=== PATIENT | male | born 1955 | race Caucasian/White ===

== ENCOUNTER 2017-06-21 04:38 | Emergency (ER) | payer BC, OTHER ==
[~2017-06-21] VITALS: Ht 172.7 cm; Wt 96.5 kg
[2017-06-21 04:55] VITALS: Ht 172.7 cm; Wt 96.5 kg
[2017-06-21 05:54] LABS: BASOPHIL # 0.1 10^3/ul (0.0-0.1); BASOPHILS % 0.5 % (0.0-2.0); EOSINOPHILS # 0.1 10^3/ul (0.0-0.5); EOSINOPHILS % 0.4 % (0.0-7.0); HEMATOCRIT 40.8 % (42.0-52.0); HEMOGLOBIN 13.9 g/dl (14.0-18.0); LYMPHOCYTES # 1.3 10^3/ul (0.8-2.9); LYMPHOCYTES % 7.8 % (15.0-51.0); MEAN CORPUSCULAR HEMOGLOBIN 30.2 pg (29.0-33.0); MEAN CORPUSCULAR HGB CONC 34.1 g/dl (32.0-37.0); MEAN CORPUSCULAR VOLUME 88.7 fl (82.0-101.0); MEAN PLATELET VOLUME 12.2 fl (7.4-10.4); MONOCYTE # 0.7 10^3/ul (0.3-0.9); MONOCYTES % 3.9 % (0.0-11.0); NEUTROPHIL # 14.5 10^3/ul (1.6-7.5); NEUTROPHILS % 86.3 % (39.0-77.0); PLATELET COUNT 147 10^3/UL (140-415); RED CELL DISTRIBUTION WIDTH 13.8 % (11.5-14.5); WHITE BLOOD COUNT 16.8 10^3/ul (4.8-10.8)
[2017-06-21 06:20] LABS: ALBUMIN 4.4 g/dl (3.3-4.9); ALBUMIN/GLOBULIN RATIO 1.22; BILIRUBIN,INDIRECT 0.6 mg/dl (0-1.1); BILIRUBIN,TOTAL 0.6 mg/dl (0.2-1.3); CALCIUM 9.6 mg/dl (8.4-10.2); CREATININE 0.83 mg/dl (0.61-1.24); POTASSIUM 3.6 mmol/L (3.5-5.1)
[2017-06-21] MEDS ORDERED: SOD CHLORIDE 0.9% 1,000 ML IV STA (06:44)
--- NOTE | 2017-06-21 06:53 | ERA ---
ER Documentation Chief Complaint Date/Time DATE: 06/21/17 TIME: 06:48 Chief Complaint blood in urine since 0100. also c/o penile pain HPI This is a very pleasant 61-year-old Kyrgyz-speaking male with a known history of insulin-dependent diabetes mellitus high cholesterol and BPH that presents to the emergency department complaining of 2 days of frequency urgency and dysuria. Roughly 6 hours prior to arrival the patient developed hematuria. His fiance gave him extra strength Tylenol at 7 PM yesterday evening and at 1 AM, which was the onset of the hematuria, 6 hours prior to arrival. Patient never had any similar symptoms in the past. He does complain of a burning sensation in his penis when he urinates. He has had no recent travel or hospitalizations. He is not currently on antibiotics. He denies any abdominal pain. He has no shortness of breath at rest or exertion. He has no chest pain or pressure that radiates to the neck arm back or jaw. ROS All systems reviewed and are negative except as per history of present illness. Allergies Allergies: Coded Allergies: No Known Drug Allergies (Verified Allergy, Unknown, 06/21/17) PMhx/Soc History of Surgery: Yes (L eye sx, 4 stents) Hx Cardiac Disorders: Yes (high cholesterol, [place]) Hx Miscellaneous Medical Probl: Yes (BPH, DM) Hx Alcohol Use: Yes (rarely) Hx Substance Use: No Hx Tobacco Use: Yes Smoking Status: Current every day smoker Physical Exam Vitals Vital Signs Date Time Temp Pulse Resp B/P Pulse Ox O2 Delivery O2 Flow Rate FiO2 06/21/17 05:36 93 18 127/74 98 Room Air 06/21/17 04:55 99.7 93 20 131/66 97 Physical Exam Constitutional:Well-developed. Well-nourished. HEENT:Normocephalic. Atraumatic.Pupils were equal round reactive to light. Moist mucous membranes.No tonsillar exudates. Neck: No nuchal rigidity. No lymphadenopathy. No posterior cervical spine tenderness or step-offs. Respiratory: Not using accessory muscles of respiration.Lungs were clear to auscultation bilaterally. No rhonchi. No rales. No wheezing. Cardiovascular: Regular rate regular rhythm.No murmurs. No rubs were appreciated.S1, S2 normal. Distal pulses are palpable 2+ bilaterally. GI: Abdomen was soft. Nontender. Non Distended. No pulsatile abdominal masses or bruits. No rebound. No guarding. Bowel sounds were present and normal. Muscle skeletal: Full range of motion of both the upper and lower extremities bilaterally.Normal muscle tone.No assymetrical calf tenderness or swelling. Skin: No petechia, no purpura. No lesions on the palms or the soles of the feet. No maculopapular rash. NEURO: Patient was alert, awake, orientated x3.No facial droop. Gait observed and normal with no ataxia.Speech had regular rate and rhythm. No focal neurological deficits. Result Diagram: 06/21/17 0530 06/21/17 0530 Results 24 hrs Laboratory Tests Test 06/21/17 05:30 White Blood Count 16.810^3/ul Red Blood Count 4.6010^6/ul Hemoglobin 13.9g/dl Hematocrit 40.8% Mean Corpuscular Volume 88.7fl Mean Corpuscular Hemoglobin 30.2pg Mean Corpuscular Hemoglobin Concent 34.1g/dl Red Cell Distribution Width 13.8% Platelet Count 29986^3/UL Mean Platelet Volume 12.2fl Neutrophils % 86.3% Lymphocytes % 7.8% Monocytes % 3.9% Eosinophils % 0.4% Basophils % 0.5% Nucleated Red Blood Cells % 0.0/100WBC Neutrophils # 14.510^3/ul Lymphocytes # 1.310^3/ul Monocytes # 0.710^3/ul Eosinophils # 0.110^3/ul Basophils # 0.110^3/ul Nucleated Red Blood Cells # 0.010^3/ul Sodium Level 143mmol/L Potassium Level 3.6mmol/L Chloride Level 99mmol/L Carbon Dioxide Level 25mmol/L Anion Gap 23 Blood Urea Nitrogen 12mg/dl Creatinine 0.83mg/dl Glucose Level 202mg/dl Calcium Level 9.6mg/dl Total Bilirubin 0.6mg/dl Direct Bilirubin 0.00mg/dl Indirect Bilirubin 0.6mg/dl Aspartate Amino Transf (AST/SGOT) 20IU/L Alanine Aminotransferase (ALT/SGPT) 29IU/L Alkaline Phosphatase 87IU/L Total Protein 8.0g/dl Albumin 4.4g/dl Globulin 3.60g/dl Albumin/Globulin Ratio 1.22 Lipase 74U/L Current Medications Medications (Trade) Dose Ordered Sig/Haresh Route PRN Reason Start Time Stop Time Status Last Admin Dose Admin Sodium Chloride 1,000 ml @ 1,000 mls/hr Q1H STAT IV 06/21/17 06:44 06/21/17 07:43 UNV Cefazolin Sodium (Ancef 1 Gm/50 ml (Pmx)) 50 ml @ 100 mls/hr ONCE IVPB 06/21/17 07:00 06/21/17 07:29 UNV Ibuprofen (Motrin) 800 mg ONCE ONCE PO 06/21/17 07:00 06/21/17 07:01 UNV Procedures/MDM This patient presented to the emergency department frequency urgency and dysuria. The patient was nontoxic in appearance but did have leukocytosis. The patient had IV access established by nursing staff was placed in a clinical research monitor. The patient's physical exam findings were suggestive of a urinary tract infection. The patient was given Motrin for analgesic control in the emergency department liter bolus of normal saline. The patient's urinalysis had pyuria with leukocytosis, urine culture was obtained, and the patient received 1 g of Ancef intravenously. The patient stated he felt comfortable being discharged home his pain and improved and he was sent home with oral antibiotics. I also explained to the patient the necessity of following up with his primary care physician as well as urologist as his PSA was significantly elevated and indicated could not rule out neoplasm at this time. The patient was discharged home in fair condition. They were instructed to return to the emergency department at any time if there was any worsening of their condition. The patient stated they would follow up with their PCP in the next 24-48 hours to initiate a suitable medication regimen under the care of their PCP as well as to allow their PCP to monitor any drug reactions. The patient was discharged home with prescriptions after they gave informed consent to the new medication. They were also fully informed by myself on the adverse effects and adverse drug interactions in order to provide adequate safeguards to prevent possible adverse reactions to medications. Departure Diagnosis: Primary Impression: Hematuria Additional Impression: Urinary tract infection Qualified Code: N30.01 - Acute cystitis with hematuria Condition: Fair SAMANTHAORAA Jun 21, 2017 06:53
[2017-06-21] MEDS ORDERED: IBUPROFEN 800 MG TAB PO ONE (07:00)
[2017-06-21] MEDS ORDERED: CEFAZOLIN 1 GM/50 ML (PMX) 50 ML IVPB SCH (07:00)
[2017-06-21 07:30] LABS: ADD UMIC YES; UR ASCORBIC ACID NEGATIVE (NEGATIVE); UR BACTERIA FEW /HPF (NONE SEEN); UR BILIRUBIN (Dip) NEGATIVE (NEGATIVE); UR BLOOD (Dip) 2+ mg/dL (NEGATIVE); UR CLARITY CLEAR (CLEAR); UR COLOR STRAW (YELLOW); UR GLUCOSE (Dip) NEGATIVE (NEGATIVE); UR KETONES (Dip) NEGATIVE (NEGATIVE); UR LEUKOCYTE ESTERASE (Dip) 3+ Leu/ul (NEGATIVE); UR NITRITE (Dip) NEGATIVE (NEGATIVE); UR RBC 0 /HPF (0-5); UR SPECIFIC GRAVITY (Dip) 1.003 (1.003-1.030); UR TOTAL PROTEIN (Dip) NEGATIVE (NEGATIVE); UR UROBILINOGEN (Dip) NEGATIVE (NEGATIVE)
--- NOTE | 2017-06-21 08:13 | RADRPT ---
PROCEDURE: CT abdomen and pelvis without IV contrast. CLINICAL INDICATION: Abdominal and left flank pain TECHNIQUE: CT scan of the abdomen and pelvis without contrast was performed on the [employer] volumetric [address] scanner. The patient was scanned without intravenous contrast. Coronal and sagittal refo rmatted images were obtained from the axial source images. The CTDI vol is 19.16 mGy and the DLP is 1252.74 mGy-cm. COMPARISON: None. FINDINGS: CT abdomen: There is bibasilar compressive atelectasis. The remaining lung bases are clear. The heart size is n ot enlarged and is without pericardial thickening or effusion. The liver is normal in size and density and is without focal mass or intrahepatic biliary dilatation . The spleen is normal in size and homogeneous in density. The stomach is grossly unremarkable. T he pancreas as visualized is normal. The gallbladder and biliary tree are unremarkable and there is no evidence for common bile duct dilatation. The adrenal glands are symmetric and normal. The kid neys are symmetrically unremarkable as well. Nonspecific bilateral perinephric soft tissue stranding is seen. No renal calculus or obstructive uropathy or mass lesion is seen. The aorta is of normal in caliber. There is no retroperitoneal lymphadenopathy. The chen hepatis region is clear. The large bowel is stool-filled. The small and large bowel and mesentery, as visua lized, are otherwise unremarkable. The normal appendix is identified. CT pelvis: The prostate is significantly enlarged. The pelvic sidewalls and inguinal regions are clear. No pe lvic mass, lymphadenopathy, or free fluid is seen. No acute inflammation is seen. The urinary blad catherine wall is thickened. Degenerative spondylosis of the lumbar spine is seen. A sclerotic foci in the right iliac bone is se en measuring 7 mm in size and may represent a benign bone island. No osteolytic lesion is detected. IMPRESSION: 1. No acute pathology in the abdomen and pelvis. 2. Bladder wall thickening which may be secondary to bladder outlet obstruction given the significa nt enlarged prostate. The possibility of cystitis or under distension should also be considered. C orrelation with urinalysis may be of value as clinically warranted. In addition, recommend PSA faith elation. 3. Stool filled large bowel. 4. 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 Correlation with renal function tests may be of value. RPTAT: HPNM Jameel Rosas, Physician Date Time Electronically viewed and signed by Jameel Rosas, Physician on 06/21/2017 08:13 /
[2017-06-21] MEDS ORDERED: IBUP800T25 PO (08:22)
[2017-06-21] MEDS ORDERED: CEPH-443 PO (08:22)
[2017-06-21 08:47] VITALS: BP 116/64; PULSE 90; RESP 18; TEMP 100.6
== END 2017-06-21 08:57 | disposition home or self-care (01) ==
LOC: E/R 04:38
DX: N30.01 Acute cystitis with hematuria (principal); F17.210 Nicotine dependence, cigarettes, uncomplicated; E11.9 Type 2 diabetes mellitus without complications
CPT/HCPCS: 36415; 74176; 80053; 81001; 83690; 84153; 84154; 85025; 87086; 96374; J0690; J7030; Z7502; Z7610

== ENCOUNTER 2017-06-27 12:16 | Inpatient (IN) | END 2017-07-03 18:25 | disposition home or self-care (01) | DRG 872 | DX: A41.9 Sepsis, unspecified organism (principal); E11.65 Type 2 diabetes mellitus with hyperglycemia; I10 Essential (primary) hypertension; N12 Tubulo-interstitial nephritis, not specified as acute or chronic; N45.3 Epididymo-orchitis; I25.2 Old myocardial infarction; E78.00 Pure hypercholesterolemia, unspecified; B96.20 Unspecified Escherichia coli [E. coli] as the cause of diseases classified elsewhere; E66.9 Obesity, unspecified; Z68.32 Body mass index [BMI] 32.0-32.9, adult; N40.1 Benign prostatic hyperplasia with lower urinary tract symptoms; R33.8 Other retention of urine; Z95.5 Presence of coronary angioplasty implant and graft; Z87.891 Personal history of nicotine dependence ==

== ENCOUNTER 2017-12-02 20:09 | Emergency (ER) | END 2017-12-03 04:04 | disposition home or self-care (01) ==

== ENCOUNTER 2019-05-08 17:59 | Inpatient (IN) | payer OTHER, BC ==
[~2019-05-08] VITALS: Ht 172.7 cm; Wt 90.8 kg
[~2019-05-08 17:59] MED LIST: ASPI-817 PO; ATOR-2 PO; BENA10TA4 PO; CIPR500T4 PO; FENO145T37 PO; FINA5TAB4 PO; HYDR-4011 PO; IBUP-1542 PO; MTF1000T PO; NOVO7030 SC; SS SC; TAMS-14 PO; TRAM50TA PO
[2019-05-08] MEDS ORDERED: SODIUM CHLORIDE 0.9% 1L BAG IV* STA (18:42)
--- NOTE | 2019-05-08 18:42 | ERD ---
ER Documentation Chief Complaint Chief Complaint fever/generalize body weakness/nausea x 1 day. also c/o frequent urination HPI 63-year-old man with a history of BPH and prior UTIs presents with tactile fever, chills, generalized weakness, and dysuria beginning yesterday. Patient also complains of increased urinary frequency, no penile discharge, no complaints of scrotal or testicular pain, no chest pain or shortness of breath, no URI symptoms, no cough, no abdominal pain. ROS All systems reviewed and are negative except as per history of present illness. Medications Home Meds Active Scripts Ibuprofen* (Motrin*) 600 Mg Tab, 600 MG PO Q6, #20 TAB Prov:BRANDEE TORRES MD 12/03/17 Ciprofloxacin Hcl* (Ciprofloxacin Hcl*) 500 Mg Tablet, 500 MG PO BID for 10 Days, TAB Prov:BRANDEE TORRES MD 12/03/17 Hydrocodone/Acetaminophen (Bloomer 5-325 Tablet) 1 Each Tablet, 1 EACH PO Q4 for PAIN, #30 TAB Prov:BUCK LE 07/03/17 Tamsulosin Hcl* (Flomax*) 0.4 Mg Cap.er.24h, 0.4 MG PO HS for 30 Days, CAP Prov:BUCK EL 07/03/17 Reported Medications Insulin Human Regular (Novolin-R U-100) 100 Unit/Ml Soln, 12 UNIT SC SLIDING SCALE AC, EA 12/03/17 Insulin Isophan/Regular (Humulin 70/30) 100 Units/Ml Susp, 40 UNIT SC AC BREAKFAST DINNER, EA 12/03/17 Tramadol Hcl* (Ultram*) 50 Mg Tablet, 50 MG PO QHS PRN for PAIN, TAB 12/03/17 Aspirin* (Aspirin* EC) 81 Mg Tablet.dr, 81 MG PO DAILY, TAB 12/03/17 Benazepril Hcl* (Benazepril Hcl*) 10 Mg Tablet, 10 MG PO DAILY, #30 TAB 12/03/17 Hydrocodone/Acetaminophen (Bloomer 5-325 Tablet) 1 Each Tablet, 1 EACH PO, TAB 12/03/17 Metformin* (Glucophage*) 1,000 Mg Tablet, 1000 MG PO WITH BREAKFAST DINNE, #30 TAB 12/03/17 Atorvastatin* (Atorvastatin*) 80 Mg Tablet, 80 MG PO QHS, #30 TAB 06/28/17 Fenofibrate Nanocrystallized* (Fenofibrate*) 145 Mg Tablet, 145 MG PO DAILY, TAB 06/28/17 Finasteride* (Finasteride*) 5 Mg Tablet, 5 MG PO DAILY, TAB 06/28/17 Allergies Allergies: Coded Allergies: No Known Drug Allergies (Verified Allergy, Unknown, 06/21/17) PMhx/Soc Dyslipidemia, BPH, CAD, CHF, hypertension History of Surgery: Yes (Back surgery, Heart surgery ) Anesthesia Reaction: No Hx Neurological Disorder: No Hx Respiratory Disorders: No Hx Cardiac Disorders: Yes (CHF) Hx Psychiatric Problems: No Hx Miscellaneous Medical Probl: No Hx Alcohol Use: Yes (weekly) Hx Substance Use: No Hx Tobacco Use: Yes (4-5 cigarette per day) Smoking Status: Current every day smoker Physical Exam Vitals Vital Signs Date Temp Pulse Resp B/P (MAP) Pulse Ox O2 O2 Flow FiO2 Time Delivery Rate 05/08/19 98.6 81 23 94/52 (66) 100 Room Air 20:30 05/08/19 93 18 100/56 100 Room Air 20:01 (71) 05/08/19 101.4 115 16 93/52 (66) 96 18:24 Physical Exam Const: Mild discomfort, febrile Resp: Clear to auscultation bilaterally Cardio: Tachycardic and regular, no murmurs Abd: Soft, non tender, non distended. Patient had a soft belly without guarding rigidity or rebound. Skin: No petechiae or rashes Back: No midline or flank tenderness Ext: No cyanosis, or edema, calves symmetrical no hematomas or contusions, no lacerations Neur: Awake and alert x3, no focal deficits or facial asymmetry, pupils equal round reactive to light Psych: Normal Mood and Affect Result Diagram: 05/08/19 1836 05/08/19 1836 Results 24 hrs Laboratory Tests Test 05/08/19 18:23 05/08/19 18:35 05/08/19 18:36 05/08/19 20:33 Bedside Glucose 79 mg/dL POC Venous Lactate 2.0 mmol/L White Blood Count 8.1 10^3/ul Red Blood Count 4.84 10^6/ul Hemoglobin 14.3 g/dl Hematocrit 42.7 % Mean Corpuscular 88.2 fl Volume Mean Corpuscular 29.5 pg Hemoglobin Mean Corpuscular 33.5 g/dl Hemoglobin Concent Red Cell 13.7 % Distribution Width Platelet Count 170 10^3/UL Mean Platelet 11.8 fl Volume Immature 0.200 % Granulocytes % Neutrophils % % Segmented 60 % Neutrophils % (Manual) Band Neutrophils % 27 % (Manual) Lymphocytes % % Lymphocytes % 11 % (Manual) Monocytes % % Eosinophils % % Basophils % % Basophils % 2 % (Manual) Nucleated Red 0.0 /100WBC Blood Cells % Immature 0.020 10^3/ul Granulocytes # Neutrophils # 10^3/ul Neutrophils # 5.0 10^3/ul (Manual) Band Neutrophils # 2.1 10^3/ul Lymphocytes 0.8 10^3/ul (Manual) Lymphocytes # 10^3/ul Monocytes # 10^3/ul Eosinophils # 10^3/ul Basophils # 10^3/ul Basophils # 0.1 10^3/ul (Manual) Nucleated Red 10^3/ul Blood Cells # Platelet Estimate NORMAL Giant Platelets 1 % Polychromasia 1+ Poikilocytosis 1+ Anisocytosis 1+ Microcytosis 1+ Prothrombin Time 12.9 Sec Prothrombin Time 1.0 Ratio INR International 0.96 Normalized Ratio Activated 23.[address] Time Urine Color RED Urine Clarity CLOUDY Urine pH 5.0 Urine Specific 1.020 [place] Urine Ketones NEGATIVE mg/dL Urine Nitrite POSITIVE mg/dL Urine Bilirubin NEGATIVE mg/dL Urine Urobilinogen 2+ mg/dL Urine Leukocyte NEGATIVE Dilan/ul Esterase Urine Microscopic > 182 /HPF RBC Urine Microscopic 17 /HPF WBC Urine Squamous FEW /HPF Epithelial Cells Urine Bacteria FEW /HPF Urine Mucus MANY /HPF Urine Hemoglobin 3+ mg/dL Urine Glucose NEGATIVE mg/dL Urine Total 2+ mg/dl Protein Sodium Level 139 mmol/L Potassium Level 3.2 mmol/L Chloride Level 103 mmol/L Carbon Dioxide 24 mmol/L Level Anion Gap 12 Blood Urea 15 mg/dl Nitrogen Creatinine 0.82 mg/dl Est Glomerular > 60 mL/min Filtrat Rate mL/min Glucose Level 66 mg/dl Calcium Level 8.8 mg/dl Total Bilirubin 1.2 mg/dl Direct Bilirubin 0.00 mg/dl Indirect Bilirubin 1.2 mg/dl Aspartate Amino 26 IU/L Transf (AST/SGOT) Alanine 32 IU/L Aminotransferase ( ALT/SGPT) Alkaline 92 IU/L Phosphatase Troponin I < 0.012 ng/ml Total Protein 7.6 g/dl Albumin 4.1 g/dl Globulin 3.50 g/dl Albumin/Globulin 1.17 Ratio Lipase 133 U/L Lactic Acid Level 1.8 mmol/L Current Medications Medications Dose Sig/Haresh Start Time Status Last (Trade) Ordered Route PRN Stop Time Admin Dose Reason Admin Sodium 2,000 ml BOLUS OVER 2 05/08/19 DC 05/08/19 Chloride HOURS STAT 18:42 18:52 (NS) IV* 05/08/19 18:50 Ibuprofen 600 mg ONCE ONCE 05/08/19 DC 05/08/19 (Motrin) PO 19:00 18:54 05/08/19 19:01 Ceftriaxone 50 ml @ ONCE ONCE 05/08/19 DC 05/08/19 Sodium 100 mls/hr IVPB 19:00 18:54 05/08/19 19:29 Sodium 1,000 ml @ Q1H STAT 05/08/19 DC 05/08/19 Chloride 1,000 mls/hr IV 20:23 20:34 05/08/19 21:22 IV Flush 3 ml PER 05/08/19 (NS 3 ml) PROTOCOL IV 21:00 650 mg Q6H PRN 05/08/19 Acetaminophen PO .PAIN 1-3 21:00 (Tylenol OR TEMP Tab) 1 tab Q6H PRN 05/08/19 Acetaminophen PO .PAIN 4-6 21:00 / Hydrocodone Bitart (Bloomer (5/325)) Morphine 2 mg Q4H PRN 05/08/19 Sulfate IV .PAIN 21:00 (morphine) 7-10 Docusate 100 mg Q12H PRN 05/08/19 Sodium PO 21:00 (Colace) .CONSTIPATION Bisacodyl 5 mg DAILY PRN 05/08/19 (Dulcolax) PO 21:00 .CONSTIPATION 200 ml @ Q12 IVPB 05/08/19 05/08/19 Ciprofloxacin 200 mls/hr 21:00 21:33 / Dextrose Discontinue ONCE ONCE 05/08/19 DC Miscellaneous current oral XX 21:00 sulfonylur... 05/08/19 21:15 Information (* Miscellaneous Pharmacy Order) Diagnostic 1 ea 02 XX 05/09/19 Test (Pha) 02:00 (Accu-Chek) ONCE ONCE 05/08/19 DC Miscellaneous HYPOGLYCEMIA XX 21:00 PROTOCOL 05/08/19 21:15 Information w... (* Miscellaneous Pharmacy Order) Insulin NOVOLOG WITH MEALS 05/08/19 Aspart *MILD* BEDTIME SC 21:00 (Novolog ALGORITHM Insulin Pen) Discontinue ONCE ONCE 05/08/19 DC Miscellaneous all previ... XX 21:00 05/08/19 21:15 Information (* Miscellaneous Pharmacy Order) Aspirin 81 mg DAILY PO 05/09/19 (Halfprin) 09:00 80 mg QHS PO 05/08/19 05/08/19 Atorvastatin 21:00 21:30 Calcium (Lipitor) Fenofibrate 145 mg DAILY PO 05/09/19 (Tricor) 09:00 Finasteride 5 mg DAILY PO 05/09/19 (Proscar) 09:00 Tamsulosin 0.4 mg HS PO 05/08/19 05/08/19 HCl 21:00 21:30 (Flomax) 40 unit AC BREAKFAST 05/09/19 UNV Miscellaneous DINNER SC 07:00 Information Sodium 1,000 ml @ Q1H ONCE 05/08/19 05/08/19 Chloride 1,000 mls/hr IV 21:40 21:53 05/08/19 22:39 Procedures/MDM IV line was established patient was placed on youth nutritional monitor rhythm strip revealed a narrow complex tachycardia at 110 bpm with upright P and T waves. Patient was febrile, blood and urine cultures have been ordered results are pending I will follow-up. Chest X-ray 1V Interpreted by me: Soft Tissue: No acute abnormalities Bones: No acute abnormalities Mediastinum/Cardiac Silhouette/Lungs: No acute abnormalities I administered ibuprofen 600 mg p.o. for fever, ceftriaxone 1 g IV for suspected UTI, and 4 L normal saline IV. EKG performed, read by me revealed a sinus tachycardia 107 bpm, normal axis, narrow QRS complex, no concerning ST elevations or depressions noted Initial lactic acid 2.0, repeat was 1.8. CBC was within normal limits, electrolytes within normal limits, liver function tests normal, troponin negative, urinalysis positive for infection Patient's infectious symptoms have not stabilized and the patient is at risk of rapid decompensation. The patient will be admitted for careful hydration, antibiotic therapy, and infectious source control. SEVERE SEPSIS CRITERIA: Infectious source: UTI End organ damage indicated by: SEPSIS MANAGEMENT Time of recognition of sepsis: Upon arrival. Time of recognition of severe sepsis: No severe sepsis at this time. Time of recognition of septic shock: No septic shock at this time. 3 HOUR BUNDLE Blood cultures x 2 before broad-spectrum antibiotics: Yes 30 ml/kg NS bolus completed Initial lactate 2.0 Repeat lactate 1.8 SEPTIC SHOCK ASSESSMENT: No lactic acid > 4.0 No persistent hypotension (SBP < 90 or 40 mmHg drop, MAP < 65) despite 30 mL/kg IV fluid bolus VOLUME REASSESSMENT FOR SEPTIC SHOCK: Reevaluation Time: 2130 Temp 98.6, pulse 88 bpm, blood pressure 100/60, oxygen saturation 100% Heart regular rate & rhythm Lungs no crackles Skin warm & dry Cap Refill less than 2 seconds Peripheral pulses radially present PERSISTENT HYPOTENSION TREATMENT: Comfort care no Central line not Required Vasopressor started not required I considered further perfusion assessment with CVP measurement, SCVO2, bedside ultrasound volume assessment, passive leg raise, trial of further fluid bolus. And proceeded with 30 ml/kg fluid bolus of NSS, broad spectrum antibiotics, and admission. CRITICAL CARE: Critical care time 35 minutes, this was time separate from other billable procedures. Emergent fluid management while maintaining close respiratory support. Provision of immediate and broad-spectrum antibiotic therapy. Simultaneous assessment for possible sources in order to direct targeted therapy. Consideration for invasive and chemical support to prevent cardiopulmonary collapse. Critical care time is independent of procedures performed. Accepting Care Team: Current data and ongoing care discussed. Time: Time of admission Primary Provider: Hospitalist Consulting: Infectious disease and Outstanding Data: none Departure Diagnosis: Primary Impression: Acute UTI Additional Impression: Sepsis Sepsis type: sepsis due to unspecified organism Qualified Codes: A41.9 - Sepsis, unspecified organism Condition: RIP Bourne MD May 08, 2019 18:42
[2019-05-08] MEDS ORDERED: CEFTRIAXONE 1 GM/50 ML (PMX) 50 ML IVPB ONE (19:00)
[2019-05-08] MEDS ORDERED: IBUPROFEN 600 MG TAB PO ONE (19:00)
[2019-05-08] MEDS ORDERED: SOD CHLORIDE 0.9% 1,000 ML IV STA (20:23)
--- NOTE | 2019-05-08 20:52 | HP ---
Date/Time of Note Date/Time of Note DATE: 05/08/19 TIME: 20:52 Assessment/Plan VTE Prophylaxis SCD applied (from Nsg): Yes Pharmacological prophylaxis: NA/contraindicated Pharm contraindication: low risk/ambulating Lines/Catheters IV Catheter Type (from Nrsg): Saline Lock Urinary Cath still in place: No Assessment/Plan Hospital Course This is a 63-year-old male being admitted to telemetry floor for: #1 sepsis: Secondary to urinary tract infection. Patient had previous urine cultures positive for E. coli. Cipro iv. Await urine culture results. Will trend lactic acid levels. #2 recurrent urinary tract infection: Cipro iv, await urine culture. Also check PSA level. Consider urology consultation if indicated. #2 normocytic anemia: Denies any overt bleeding. Monitor closely. Follow-up as an outpatient #3 diabetes mellitus: We will check a hemoglobin A1c level, patient is on NPH 40 units twice daily. We will put him on 20 units twice daily of Lantus as we do not carry NPH in the hospital. Insulin sliding scale. #4 hyperlipidemia: Check lipid panel, continue statin #5 hypertension: Patient's blood pressures are borderline at the current time given his sepsis. We will hold off on initiating home blood pressure meds at the current time #6 coronary artery disease: Continue patient's home medications however we will hold blood pressure meds #7 BPH: Continue home meds check a PSA level #8 history of epididymoorchitis: The patient denies any testicular pain, he does report dysuria on urination which she reports was similar to what he had last time. Will order a stat ultrasound of the scrotum. #9 DVT GI prophylaxis: SCDs, no GI prophylaxis indicated Further treatment strategy will be implemented as per the clinical course. Result Diagram: 05/08/19 1836 05/08/19 1836 Results 24hrs Laboratory Tests Test 05/08/19 18:23 05/08/19 18:35 05/08/19 18:36 Bedside Glucose 79 POC Venous Lactate 2.0 White Blood Count 8.1 # Red Blood Count 4.84 Hemoglobin 14.3 Hematocrit 42.7 Mean Corpuscular Volume 88.2 Mean Corpuscular Hemoglobin 29.5 Mean Corpuscular Hemoglobin Concent 33.5 Red Cell Distribution Width 13.7 Platelet Count 170 Mean Platelet Volume 11.8 H Immature Granulocytes % 0.200 Neutrophils % Segmented Neutrophils % (Manual) 60 Band Neutrophils % (Manual) 27 H Lymphocytes % Lymphocytes % (Manual) 11 L Monocytes % Eosinophils % Basophils % Basophils % (Manual) 2 Nucleated Red Blood Cells % 0.0 Immature Granulocytes # 0.020 Neutrophils # Neutrophils # (Manual) 5.0 Band Neutrophils # 2.1 H Lymphocytes (Manual) 0.8 Lymphocytes # Monocytes # Eosinophils # Basophils # Basophils # (Manual) 0.1 H Nucleated Red Blood Cells # Platelet Estimate NORMAL Giant Platelets 1 H Polychromasia 1+ Poikilocytosis 1+ Anisocytosis 1+ Microcytosis 1+ Prothrombin Time 12.9 Prothrombin Time Ratio 1.0 INR International Normalized Ratio 0.96 Activated Partial Thromboplast Time 23.0 Urine Color RED Urine Clarity CLOUDY A Urine pH 5.[address] [place] 1.020 Urine Ketones NEGATIVE Urine Nitrite POSITIVE A Urine Bilirubin NEGATIVE Urine Urobilinogen 2+ H Urine Leukocyte Esterase NEGATIVE Urine Microscopic RBC > 182 H Urine Microscopic WBC 17 H Urine Squamous Epithelial Cells FEW Urine Bacteria FEW A Urine Mucus MANY A Urine Hemoglobin 3+ H Urine Glucose NEGATIVE Urine Total Protein 2+ H Sodium Level 139 Potassium Level 3.2 L Chloride Level 103 Carbon Dioxide Level 24 Anion Gap 12 Blood Urea Nitrogen 15 Creatinine 0.82 Est Glomerular Filtrat Rate mL/min > 60 Glucose Level 66 L Calcium Level 8.8 Total Bilirubin 1.2 Direct Bilirubin 0.00 Indirect Bilirubin 1.2 H Aspartate Amino Transf (AST/SGOT) 26 Alanine Aminotransferase (ALT/SGPT) 32 Alkaline Phosphatase 92 Troponin I < 0.012 Total Protein 7.6 Albumin 4.1 Globulin 3.50 H Albumin/Globulin Ratio 1.17 Lipase 133 HPI/ROS Admit Date/Time Admit Date/Time Hx of Present Illness Chief complaint: Dysuria This is a 63-year-old male with a past medical history of 5 diabetes mellitus, hyperlipidemia, hypertension, coronary artery disease and BPH with a history of prior urinary tract infections who presented to the emergency department with dysuria that started yesterday. Patient reports that he has been having increased frequency and burning when he pees. He also reports fevers and chills and generalized weakness. Denies any discharge from his penis. He denies any scrotal or testicular pain. He denies any chest pain or shortness of breath. He does report that in the past he had an infection of his testicles, though this time he does not feel that. Allergies: NKDA Medications: See MAR ROS Const: As per HPI Eyes : No pain discharge or redness or change in visual acuity ENT: No pain, sore throat, congestion, congestion, dysphagia or discharge Respiratory: No shortness of breath, cough, sputum, wheezing, or pleuritic pain Cardiovascular: No chest pain, palpitation, PND, or edema GI : no change in appetite, abdominal pain, nausea, vomiting, diarrhea, constipation, or change in the color his stool Genitourinary: As per HPI Musculoskeletal: No joint pain, back pain, neck pain, restricted range of motion in neck or joints Skin: No rash, bruising or hives Neuro: No headache, dizziness, syncope, seizure, focal weakness Endocrine: No polyuria, polydipsia, temperature intolerance Psych: No hallucination, depression, anxiety or suicidal ideation PMH/Family/Social Past Medical History Diabetes mellitus, hyperlipidemia, hypertension, coronary artery disease BPH epididymoorchitis, recurrent UTIs Medications Current Medications Sodium Chloride 1,000 ml @ 1,000 mls/hr Q1H STAT IV Last administered on 05/08/19at 20:34; Admin Dose 1,000 MLS/HR; Start 05/08/19 at 20:23; Stop 05/08/19 at 21:22 Coded Allergies: No Known Drug Allergies (Verified Allergy, Unknown, 06/21/17) Past Surgical History Reports cardiac stent? Family History Significant Family History: no pertinent family hx Social History Alcohol Use: none Smoking Status: Current every day smoker Drug Use: none Exam/Review of Systems Vital Signs Vitals Vital Signs Date Temp Pulse Resp B/P (MAP) Pulse Ox O2 O2 Flow FiO2 Time Delivery Rate 05/08/19 98.6 81 23 94/52 (66) 100 Room Air 20:30 Exam Exam General: Patient is pleasant male currently in bed in no acute distress HEENT: Atraumatic, normocephalic. The pupils are equal, round and reactive. Extraocular motor are intact Neck: Supple with full range of motion. No rigidity or meningismus Chest: Nontender Lungs: Clear to auscultation bilaterally no crackles rales or wheezing Heart: Normal S1-S2, Regular rhythm and rate. No murmur, S3, or S4 Abdomen: Obese, soft , nontender, nondistended , bowel sounds are present. No guarding no rebound tenderness , No masses or organomegaly. No costovertebral temporal angle mass Extremities: Normal to inspection, no edema no cyanosis Genitourinary: Deferred, he denies any pain in his testicles Neurologic: Normal mental status, speech normal, cranial nerves II through XII are intact, motor and sensory are intact, no focal weakness Additional Comments PROCEDURE: XR chest. CLINICAL INDICATION: Sepsis TECHNIQUE: Portable AP view of the chest was obtained. COMPARISON: 12/03/2017 FINDINGS: Cardiomediastinal silhouette is normal. There is no pneumothorax or pleural effusion. There is no focal pulmonic consolidation. IMPRESSION: 1. No acute pulmonary abnormality. RPTAT:HAJM Physician Kvng Date Time Electronically viewed and signed by Physician Kvng on 05/08/2019 19:29 RM/ CC: RIP ALVARADO MD [id number] PROCEDURE: US Scrotum. CLINICAL INDICATION: Severe sepsis, painful urination, history of epididymitis TECHNIQUE: Multiple sonographic images of the scrotal region were obtained utilizing a linear array transducer with grayscale and color-flow Doppler imaging. The images were reviewed on a high-resolution PACS workstation. COMPARISON: US PELVIS 12/03/2017 FINDINGS: The right testicle is well visualized and has a normal echotexture. No focal areas of abnormal echogenicity are visualized. The right testicle measures 4.5 x 1.9 x 2.6 cm. There is normal color-flow, arterial and venous flow. The right epididymis is visualized and unremarkable in appearance. There is normal color- flow. The left testicle is well visualized and has a normal echotexture. No focal areas of abnormal echogenicity are visualized. The left testicle measures 3.1 x 1.7 x 2.4 cm. There is normal color-flow, arterial and venous flow. The left epididymis is visualized and is unremarkable in appearance. There is normal color-flow. The scrotal wall is unremarkable. No swelling or edema is seen. No other incidental abnormality is identified. IMPRESSION: 1. Unremarkable testicular ultrasound. No evidence of testicular torsion. RPTAT: HJES .Joey De Anda MD, MD Date Time Electronically viewed and signed by .Joey De Anda MD, on 05/09/2019 00:01 .S/ CC: ALEC CAMARGO [id number] ALEC CAMARGO May 08, 2019 20:52
[2019-05-08] MEDS ORDERED: NACL 0.9% 3 ML SYG IV SCH (21:00)
[2019-05-08] MEDS: INSULIN ASPART [NOVOLOG] 3 ML PEN SC SCH (21:00)
[2019-05-08] MEDS ORDERED: DOCUSATE SODIUM 100 MG CAP PO PRN (21:00)
[2019-05-08] MEDS ORDERED: HYDROCODONE/APAP (5/325) TAB PO PRN (21:00)
[2019-05-08] MEDS ORDERED: BISACODYL (EC) 5 MG TAB PO PRN (21:00)
[2019-05-08] MEDS ORDERED: ACETAMINOPHEN 325 MG TAB PO PRN (21:00)
[2019-05-08] MEDS: TAMSULOSIN (SR) 0.4 MG CAP PO SCH (21:30)
[2019-05-08] MEDS: ATORVASTATIN 80 MG TAB PO SCH (21:30)
[2019-05-08] MEDS: CIPROFLOXACIN 400MG/D5W 200 ML IVPB SCH (21:33)
[2019-05-08] MEDS ORDERED: SOD CHLORIDE 0.9% 1,000 ML IV ONE (21:40)
[2019-05-08] MEDS ORDERED: INSULIN GLARGINE [LANTus] (100 UNITS/ML) SYG SC ONE (23:30)
[2019-05-08] MEDS ORDERED: GLUCAGON 1 MG INJ IM PRN (23:30)
[2019-05-08] MEDS ORDERED: GLUCOSE GEL 15 GRAM TUBE BUCCAL PRN (23:30)
[2019-05-08] MEDS ORDERED: GLUCOSE GEL 15 GRAM TUBE PO PRN ×2 (23:30)
[2019-05-08] MEDS ORDERED: DEXTROSE 50% 50 ML SYRINGE IV PRN ×2 (23:30)
[2019-05-08 23:43] VITALS: PULSE 86; Ht 172.7 cm; Wt 90.8 kg
[2019-05-08 23:45] VITALS: BP 98/55; PULSE 83; RESP 18
[2019-05-09] VITALS (11 sets, daily range): BP systolic 93–143; BP diastolic 53–67; PULSE 61–77; RESP 16–18
[2019-05-09] MEDS ORDERED: SOD CHLORIDE 0.9% 500 ML IV ONE
[2019-05-09] MEDS: ACCU-CHEK XX SCH (02:00)
[2019-05-09] MEDS ORDERED: SOD CHLORIDE 0.9% 1,000 ML IV SCH (06:30)
[2019-05-09] MEDS ORDERED: INSULIN ISOPHAN SC SCH (07:00)
[2019-05-09] MEDS: FENOFIBRATE 145 MG TAB PO SCH (08:44)
[2019-05-09] MEDS: FINASTERIDE 5 MG TAB PO SCH (08:45)
[2019-05-09] MEDS: ASPIRIN (EC) 81 MG TAB PO SCH (08:45)
[2019-05-09] MEDS: CIPROFLOXACIN 400MG/D5W 200 ML IVPB SCH (08:49)
[2019-05-09] MEDS: INSULIN ASPART [NOVOLOG] 3 ML PEN SC SCH ×4 (08:58→20:13)
[2019-05-09] MEDS: INSULIN GLARGINE [LANTus] (100 UNITS/ML) SYG SC SCH ×2 (08:59→20:21)
[2019-05-09] MEDS ORDERED: hydrALAzine 20 MG INJ IV PRN (09:30)
--- NOTE | 2019-05-09 10:17 | PN ---
Date/Time of Note Date/Time of Note DATE: 05/09/19 TIME: 10:17 Objective Vitals Vital Signs Date Temp Pulse Resp B/P (MAP) Pulse Ox O2 O2 Flow FiO2 Time Delivery Rate 05/09/19 61 08:01 05/09/19 97.7 18 107/59 98 Room Air 07:09 (75) Intake and Output 05/08/19 05/08/19 05/09/19 1515:00 23:00 07:00 IntakeIntake Total 1250 ml 500 ml OutputOutput Total 800 ml BalanceBalance 450 ml 500 ml Results Result Diagram: 05/09/19 0530 05/09/19 0530 Medications Medications Current Medications IV Flush (NS 3 ml) 3 ml PER PROTOCOL IV ; Start 05/08/19 at 21:00 Acetaminophen (Tylenol Tab) 650 mg Q6H PRN PO .PAIN 1-3 OR TEMP; Start 05/08/19 at 21:00 Acetaminophen/ Hydrocodone Bitart ([place] (5/325)) 1 tab Q6H PRN PO .PAIN 4-6 Last administered on 05/09/19at 00:46; Admin Dose 1 TAB; Start 05/08/19 at 21:00 Morphine Sulfate (morphine) 2 mg Q4H PRN IV .PAIN 7-10; Start 05/08/19 at 21:00 Docusate Sodium (Colace) 100 mg Q12H PRN PO .CONSTIPATION; Start 05/08/19 at 21:00 Bisacodyl (Dulcolax) 5 mg DAILY PRN PO .CONSTIPATION; Start 05/08/19 at 21:00 Diagnostic Test (Pha) (Accu-Chek) 1 ea 02 XX ; Start 05/09/19 at 02:00 Insulin Aspart (Novolog Insulin Pen) NOVOLOG *MILD* ALGORITHM WITH MEALS BEDTIME SC Last administered on 05/09/19at 08:58; Admin Dose 1 UNIT; Start 05/08/19 at 21:00 Aspirin (Halfprin) 81 mg DAILY PO Last administered on 05/09/19at 08:45; Admin Dose 81 MG; Start 05/09/19 at 09:00 Atorvastatin Calcium (Lipitor) 80 mg QHS PO Last administered on 05/08/19at 21:30; Admin Dose 80 MG; Start 05/08/19 at 21:00 Fenofibrate (Tricor) 145 mg DAILY PO Last administered on 05/09/19at 08:44; Ad min Dose 145 MG; Start 05/09/19 at 09:00 Finasteride (Proscar) 5 mg DAILY PO Last administered on 05/09/19at 08:45; Admin Dose 5 MG; Start 05/09/19 at 09:00 Tamsulosin HCl (Flomax) 0.4 mg HS PO Last administered on 05/08/19at 21:30; Admin Dose 0.4 MG; Start 05/08/19 at 21:00 Miscellaneous Information 1 ea NOTE XX ; Start 05/08/19 at 23:30 Glucose (Glutose) 15 gm Q15M PRN PO DECREASED GLUCOSE; Start 05/08/19 at 23:30 Glucose (Glutose) 22.5 gm Q15M PRN PO DECREASED GLUCOSE; Start 05/08/19 at 23: 30 Dextrose (D50w Syringe) 25 ml Q15M PRN IV DECREASED GLUCOSE; Start 05/08/19 at 23:30 Dextrose (D50w Syringe) 50 ml Q15M PRN IV DECREASED GLUCOSE; Start 05/08/19 at 23:30 Glucagon (Glucagen) 1 mg Q15M PRN IM DECREASED GLUCOSE; Start 05/08/19 at 23:30 Glucose (Glutose) 15 gm Q15M PRN BUCCAL DECREASED GLUCOSE; Start 05/08/19 at 23:30 Insulin Glargine (Lantus) 20 units BID SC Last administered on 05/09/19at 08:59; Admin Dose 20 UNITS; Start 05/09/19 at 09:00 Sodium Chloride 1,000 ml @ 60 mls/hr [id number] IV Last administered on 05/09/19at 06:44; Admin Dose 60 MLS/HR; Start 05/09/19 at 06:30; Stop 05/09/19 at 23:09 Cefepime HCl 50 ml @ 100 mls/hr Q12 IVPB ; Start 05/09/19 at 09:30 Hydralazine HCl (Apresoline) 10 mg Q4H PRN IV sbp >160; Start 05/09/19 at 09:30 VTE Prophylaxis SCD applied (from Nsg): Yes Lines/Catheters IV Catheter Type: Shafer in Place: No Assessment/Plan Hospital Course Subjective -Patient feeling well, no acute complaints, still with mild dysuria however overall feels well Objective Physical exam General: Patient is laying in bed and answers questions appropriately Mentation: Patient is alert and oriented 4, Head: Normocephalic atraumatic Eyes: EOMI, pupils reactive to light Neck: Supple, nontender, midline Respiratory: Clear to auscultation bilaterally Cardiovascular: regular rate, no obvious murmurs Gastrointestinal: non-tender to palpation, bowel sounds heard. Neurological: Moves all extremities spontaneously Skin: No new skin lesions Assessment and plan Gram-negative fermin bacteremia -Pending cultures -Infectious disease consulted -Continue IV antibiotic UTI -Patient has a history of recurrent UTI -Continue IV antibiotic -Infectious disease consulted -Follow-up with PSA level due to recurrent UTI Sepsis -Secondary to above UTI bacteremia -Continue IV antibiotic -Infectious disease consulted -Follow-up on cultures Normocytic anemia -No overt bleeding, monitor closely, follow-up outpatient Diabetes mellitus -Hemoglobin A1c is at optimal level -Continue current dose of Lantus, adjust as needed Dyslipidemia -Continue statin Hypertension -Holding blood pressure measurement medications right now due to sepsis, continue when able Coronary artery disease -Resume home meds when able BPH -Continue home meds History of epididymitis -Ultrasound negative for acute issues Disposition -Patient will need to continue IV antibiotic for bacteremia and UTI. RIP SANCHEZ May 09, 2019 10:17
[2019-05-09] MEDS: CEFEPIME 1GM/50 ML (PMX) 50 ML IVPB SCH ×2 (10:49→20:13)
--- NOTE | 2019-05-09 14:36 | CONS ---
DATE OF ADMISSION: 05/08/2019 DATE OF CONSULTATION: 05/09/2019 TYPE OF CONSULTATION: Infectious disease. REASON FOR CONSULTATION: Antibiotic management. HISTORY OF PRESENT ILLNESS: Dilip Weinstein is a 63-year-old male who comes in with fever, ge neralized body weakness of 1 day's duration, has a history of BPH and prior UTIs, presents with tacti le fever, chills, generalized weakness and dysuria. He also complains of increased urinary frequency without penile discharge. No scrotal or testicular pain. PAST MEDICAL HISTORY: Include dyslipidemia, benign prostatic hypertrophy, coronary artery disease, C HF and hypertension. He has a history of back surgery and heart surgery. FAMILY HISTORY: Noncontributory. SOCIAL HISTORY: He smokes 4 to 5 cigarettes per day. He drinks on a weekly basis. He does not abus e drugs. ALLERGIES: None to penicillin, sulfa or foods. MEDICATIONS: Per chart. REVIEW OF SYSTEMS: As per HPI. PHYSICAL EXAMINATION: GENERAL: He is in mild discomfort on admission. VITAL SIGNS: Temperature 101.4. SKIN: Without generalized rash. HEENT: Within normal limits. NECK: Supple. LYMPH NODES: None palpable. CHEST: Decreased breath sounds at the bases. HEART: Tachycardic without murmur or gallop. ABDOMEN: Soft, nontender, without organosplenomegaly or masses. EXTREMITIES: Without cyanosis, clubbing, or edema. RECTAL AND GENITAL: Deferred. NEUROLOGIC: No focal neurological abnormality. ANCILLARY LABORATORY DATA: White count of 8.1, H and H of 14.3 and 42.7, platelet count 170,000. BU N and creatinine 15/0.82, glucose of 66. He has 60 neutrophils and 27 bands consistent with infectio n. IMPRESSION AND PLAN: The patient was started on ceftriaxone and Cipro. His chest x-ray showed no ac corbin abnormalities. His blood cultures are growing gram-negative rods. Urine culture is negative at 24 hours. White count today is 20.4. The patient was changed to cefepime. The patient is feeling b tea, still with mild dysuria. IMPRESSION AND PLAN: The patient has urinary tract infection, although his urine so far is negative. His blood cultures are positive for gram-negative rods. We will continue him on cefepime. Consshiraz r meropenem. I will dictate my findings to the hospitalist. Since he has a history of epididymitis and ultrasound was done which was negative for any acute issues. I will dictate my findings to the ospitalist. Dictated By: KELVIN SINGH MD, JD/YADIRA Conf#: [id number] DID#: [id number] CC: AELC CAMARGO MD;*EndCC*
[2019-05-09] MEDS: ATORVASTATIN 80 MG TAB PO SCH (20:12)
[2019-05-09] MEDS: TAMSULOSIN (SR) 0.4 MG CAP PO SCH (20:12)
[2019-05-09] MEDS: morphine 2 MG INJ IV PRN (23:40)
[2019-05-10] VITALS (12 sets, daily range): BP systolic 121–182; BP diastolic 56–71; PULSE 59–87; RESP 16–20
[2019-05-10] MEDS: ACCU-CHEK XX SCH (02:00)
[2019-05-10] MEDS: INSULIN ASPART [NOVOLOG] 3 ML PEN SC SCH ×4 (08:00→21:25)
[2019-05-10] MEDS: CEFEPIME 1GM/50 ML (PMX) 50 ML IVPB SCH ×2 (08:23→21:04)
[2019-05-10] MEDS: FINASTERIDE 5 MG TAB PO SCH (08:26)
[2019-05-10] MEDS: ASPIRIN (EC) 81 MG TAB PO SCH (08:26)
[2019-05-10] MEDS: FENOFIBRATE 145 MG TAB PO SCH (08:26)
[2019-05-10] MEDS: INSULIN GLARGINE [LANTus] (100 UNITS/ML) SYG SC SCH ×2 (11:19→21:25)
--- NOTE | 2019-05-10 13:02 | PN ---
Date/Time of Note Date/Time of Note DATE: 05/10/19 TIME: 13:01 Objective Vitals Vital Signs Date Temp Pulse Resp B/P (MAP) Pulse Ox O2 O2 Flow FiO2 Time Delivery Rate 05/10/19 59 12:08 05/10/19 97.8 20 145/63 97 Room Air 11:12 (90) Intake and Output 05/09/19 05/09/19 05/10/19 1515:00 23:00 07:00 IntakeIntake Total 1200 ml OutputOutput Total 1650 ml BalanceBalance 1200 ml -1650 ml Results Result Diagram: 05/10/1952505/10/19525 Medications Medications Current Medications IV Flush (NS 3 ml) 3 ml PER PROTOCOL IV ; Start 05/08/19 at 21:00 Acetaminophen (Tylenol Tab) 650 mg Q6H PRN PO .PAIN 1-3 OR TEMP; Start 05/08/19 at 21:00 Acetaminophen/ Hydrocodone Bitart ([place] (5/325)) 1 tab Q6H PRN PO .PAIN 4-6 Last administered on 05/09/19at 00:46; Admin Dose 1 TAB; Start 05/08/19 at 21:00 Morphine Sulfate (morphine) 2 mg Q4H PRN IV .PAIN 7-10 Last administered on 05/09/19at 23:40; Admin Dose 2 MG; Start 05/08/19 at 21:00 Docusate Sodium (Colace) 100 mg Q12H PRN PO .CONSTIPATION; Start 05/08/19 at 21:00 Bisacodyl (Dulcolax) 5 mg DAILY PRN PO .CONSTIPATION; Start 05/08/19 at 21:00 Diagnostic Test (Pha) (Accu-Chek) 1 ea 02 XX ; Start 05/09/19 at 02:00 Insulin Aspart (Novolog Insulin Pen) NOVOLOG *MILD* ALGORITHM WITH MEALS BEDTIME SC Last administered on 05/10/19at 12:05; Admin Dose 1 UNIT; Start 05/08/19 at 21:00 Aspirin (Halfprin) 81 mg DAILY PO Last administered on 05/10/19at 08:26; Admin Dose 81 MG; Start 05/09/19 at 09:00 Atorvastatin Calcium (Lipitor) 80 mg QHS PO Last administered on 05/09/19at 20:12; Admin Dose 80 MG; Start 05/08/19 at 21:00 Fenofibrate (Tricor) 145 mg DAILY PO Last administered on 05/10/19at 08:26; Admin Dose 145 MG; Start 05/09/19 at 09:00 Finasteride (Proscar) 5 mg DAILY PO Last administered on 05/10/19at 08:26; Admin Dose 5 MG; Start 05/09/19 at 09:00 Tamsulosin HCl (Flomax) 0.4 mg HS PO Last administered on 05/09/19at 20:12; Admin Dose 0.4 MG; Start 05/08/19 at 21:00 Miscellaneous Information 1 ea NOTE XX ; Start 05/08/19 at 23:30 Glucose (Glutose) 15 gm Q15M PRN PO DECREASED GLUCOSE; Start 05/08/19 at 23:30 Glucose (Glutose) 22.5 gm Q15M PRN PO DECREASED GLUCOSE; Start 05/08/19 at 23:30 Dextrose (D50w Syringe) 25 ml Q15M PRN IV DECREASED GLUCOSE; Start 05/08/19 at 23:30 Dextrose (D50w Syringe) 50 ml Q15M PRN IV DECREASED GLUCOSE; Start 05/08/19 at 23:30 Glucagon (Glucagen) 1 mg Q15M PRN IM DECREASED GLUCOSE; Start 05/08/19 at 23:30 Glucose (Glutose) 15 gm Q15M PRN BUCCAL DECREASED GLUCOSE; Start 05/08/19 at 23:30 Insulin Glargine (Lantus) 20 units BID SC Last administered on 05/10/19at 11:19; Admin Dose 20 UNITS; Start 05/09/19 at 09:00 Cefepime HCl 50 ml @ 100 mls/hr Q12 IVPB Last administered on 05/10/19at 08:23; Admin Dose 100 MLS/HR; Start 05/09/19 at 09:30 Hydralazine HCl (Apresoline) 10 mg Q4H PRN IV sbp >160; Start 05/09/19 at 09:30 VTE Prophylaxis Risk score (from Nsg)>0 risk: 3 SCD applied (from Nsg): No SCD contraindication: other Lines/Catheters IV Catheter Type: Shafer in Place: No Assessment/Plan Hospital Course Subjective -Patient feeling well, no acute complaints, patient has feeling of incomplete urination Objective Physical exam General: Patient is laying in bed and answers questions appropriately Mentation: Patient is alert and oriented 4, Head: Normocephalic atraumatic Eyes: EOMI, pupils reactive to light Neck: Supple, nontender, midline Respiratory: Clear to auscultation bilaterally Cardiovascular: regular rate, no obvious murmurs Gastrointestinal: non-tender to palpation, bowel sounds heard. Neurological: Moves all extremities spontaneously Skin: No new skin lesions Assessment and plan Gram-negative fermin bacteremia -Pending cultures -Infectious disease consulted -Continue IV antibiotic UTI -Patient has a history of recurrent UTI -Continue IV antibiotic -Infectious disease consulted -Follow-up with PSA level due to recurrent UTI Sepsis -Secondary to above UTI bacteremia -Continue IV antibiotic -Infectious disease consulted -Follow-up on cultures Normocytic anemia -No overt bleeding, monitor closely, follow-up outpatient Diabetes mellitus -Hemoglobin A1c is at optimal level -Continue current dose of Lantus, adjust as needed Dyslipidemia -Continue statin Hypertension -Holding blood pressure measurement medications right now due to sepsis, continue when able Coronary artery disease -Resume home meds when able BPH -Continue home meds -Bladder scans as needed, straight caths as needed. History of epididymitis -Ultrasound negative for acute issues Disposition -Patient will need to continue IV antibiotic for bacteremia and UTI. RIP SANCHEZ May 10, 2019 13:02
--- NOTE | 2019-05-10 15:03 | CONS ---
Assessment/Plan Assessment/Plan Hospital Course (Demo Recall) Patient is alert looks comfortable complaining of difficulty with urination and not being able to empty her bladder WBC today 14.8 neutrophils 78.1 BUN 11 creatinine 0.63, no fevers overnight. Blood culture growing gram-negative rods urine culture came back negative preliminary Testicular ultrasound was negative chest x-ray revealed no acute pulmonary abnormality Antimicrobials: Patient is on cefepime Physical examination: Well-developed well-nourished elderly man who is alert in no distress head atraumatic normocephalic neck is supple chest rise symmetrical breath sounds diminished bases heart S1-S2 abdomen obese soft bowel sounds present patient has some tenderness over suprapubic area extremities without cyanosis Assessment: 1. Sepsis with fevers leukocytosis on admission 2. Urinary tract infection per urinalysis 3. Gram-negative fermin bacteremia likely secondary to #2 4. Possible urinary retention secondary to BPH 5. Diabetes 6. Hypertension Plan: Repeat blood cultures, continue antibiotics bladder scan with straight caths as needed Consultation Date/Type/Reason Admit Date/Time May 08, 2019 at 20:52 Initial Consult Date Type of Consult id Date/Time of Note DATE: 05/10/19 TIME: 15:03 Exam/Review of Systems Exam Vitals Vital Signs Date Temp Pulse Resp B/P (MAP) Pulse Ox O2 O2 Flow FiO2 Time Delivery Rate 05/10/19 59 12:08 05/10/19 97.8 20 145/63 97 Room Air 11:12 (90) Intake and Output 05/09/19 05/09/19 05/10/19 1515:00 23:00 07:00 IntakeIntake Total 1200 ml OutputOutput Total 1650 ml BalanceBalance 1200 ml -1650 ml Results Result Diagram: 05/10/19 0526 05/10/19 0526 Results 24hrs Laboratory Tests Test 05/09/19 17:16 05/09/19 20:11 05/10/19 05:26 05/10/19 08:22 Bedside Glucose 142 170 91 White Blood Count 14.8 #H Red Blood Count 3.88 L Hemoglobin 11.5 L Hematocrit 34.4 L Mean Corpuscular 88.7 Volume Mean Corpuscular 29.6 Hemoglobin Mean Corpuscular 33.4 Hemoglobin Concent Red Cell 14.4 Distribution Width Platelet Count 134 L Mean Platelet Volume 13.1 H Immature 0.400 Granulocytes % Neutrophils % 78.1 H Lymphocytes % 12.6 L Monocytes % 5.9 Eosinophils % 2.5 Basophils % 0.5 Nucleated Red Blood 0.0 Cells % Immature 0.060 H Granulocytes # Neutrophils # 11.6 H Lymphocytes # 1.9 Monocytes # 0.9 Eosinophils # 0.4 Basophils # 0.1 Nucleated Red Blood 0.0 Cells # Sodium Level 141 Potassium Level 3.5 Chloride Level 106 Carbon Dioxide Level 27 Anion Gap 8 Blood Urea Nitrogen 11 Creatinine 0.63 Est Glomerular > 60 Filtrat Rate mL/min Glucose Level 92 # Calcium Level 8.3 L Magnesium Level 2.0 Total Bilirubin 0.7 Direct Bilirubin 0.00 Indirect Bilirubin 0.7 Aspartate Amino 21 Transf (AST/SGOT) Alanine 31 Aminotransferase (AL T/SGPT) Alkaline Phosphatase 73 Total Protein 6.4 Albumin 3.3 Globulin 3.10 Albumin/Globulin 1.06 Ratio Test 05/10/19 11:58 Bedside Glucose 144 Medications Medication Current Medications IV Flush (NS 3 ml) 3 ml PER PROTOCOL IV ; Start 05/08/19 at 21:00 Acetaminophen (Tylenol Tab) 650 mg Q6H PRN PO .PAIN 1-3 OR TEMP; Start 05/08/19 at 21:00 Acetaminophen/ Hydrocodone Bitart ([place] (5/325)) 1 tab Q6H PRN PO .PAIN 4-6 Last administered on 05/09/19at 00:46; Admin Dose 1 TAB; Start 05/08/19 at 21:00 Morphine Sulfate (morphine) 2 mg Q4H PRN IV .PAIN 7-10 Last administered on 05/09/19at 23:40; Admin Dose 2 MG; Start 05/08/19 at 21:00 Docusate Sodium (Colace) 100 mg Q12H PRN PO .CONSTIPATION; Start 05/08/19 at 21:00 Bisacodyl (Dulcolax) 5 mg DAILY PRN PO .CONSTIPATION; Start 05/08/19 at 21:00 Diagnostic Test (Pha) (Accu-Chek) 1 ea 02 XX ; Start 05/09/19 at 02:00 Insulin Aspart (Novolog Insulin Pen) NOVOLOG *MILD* ALGORITHM WITH MEALS BED TIME SC Last administered on 05/10/19at 12:05; Admin Dose 1 UNIT; Start 05/08/19 at 21:00 Aspirin (Halfprin) 81 mg DAILY PO Last administered on 05/10/19 08:26; Admin Dose 81 MG; Start 05/09/19 at 09:00 Atorvastatin Calcium (Lipitor) 80 mg QHS PO Last administered on 05/09/19at 20:12; Admin Dose 80 MG; Start 05/08/19 at 21:00 Fenofibrate (Tricor) 145 mg DAILY PO Last administered on 05/10/19 08:26; Admin Dose 145 MG; Start 05/09/19 at 09:00 Finasteride (Proscar) 5 mg DAILY PO Last administered on 05/10/19 08:26; Admin Dose 5 MG; Start 05/09/19 at 09:00 Tamsulosin HCl (Flomax) 0.4 mg HS PO Last administered on 05/09/19 20:12; Admin Dose 0.4 MG; Start 05/08/19 at 21:00 Miscellaneous Information 1 ea NOTE XX ; Start 05/08/19 at 23:30 Glucose (Glutose) 15 gm Q15M PRN PO DECREASED GLUCOSE; Start 05/08/19 at 23:30 Glucose (Glutose) 22.5 gm Q15M PRN PO DECREASED GLUCOSE; Start 05/08/19 at 23:30 Dextrose (D50w Syringe) 25 ml Q15M PRN IV DECREASED GLUCOSE; Start 05/08/19 at 23:30 Dextrose (D50w Syringe) 50 ml Q15M PRN IV DECREASED GLUCOSE; Start 05/08/19 at 23:30 Glucagon (Glucagen) 1 mg Q15M PRN IM DECREASED GLUCOSE; Start 05/08/19 at 23:30 Glucose (Glutose) 15 gm Q15M PRN BUCCAL DECREASED GLUCOSE; Start 05/08/19 at 23:30 Insulin Glargine (Lantus) 20 units BID SC Last administered on 05/10/19at 11:19; Admin Dose 20 UNITS; Start 05/09/19 at 09:00 Cefepime HCl 50 ml @ 100 mls/hr Q12 IVPB Last administered on 05/10/19at 08:23; Admin Dose 100 MLS/HR; Start 05/09/19 at 09:30 Hydralazine HCl (Apresoline) 10 mg Q4H PRN IV sbp >160; Start 05/09/19 at 09:30 MADELYN LOYA NP May 10, 2019 15:03
[2019-05-10] MEDS: TAMSULOSIN (SR) 0.4 MG CAP PO SCH (21:10)
[2019-05-10] MEDS: ATORVASTATIN 80 MG TAB PO SCH (21:10)
[2019-05-10] MEDS: morphine 2 MG INJ IV PRN (21:11)
[2019-05-11] VITALS (9 sets, daily range): BP systolic 116–133; BP diastolic 56–77; PULSE 64–72; RESP 16–20
[2019-05-11] MEDS: ACCU-CHEK XX SCH (01:41)
[2019-05-11] MEDS: INSULIN ASPART [NOVOLOG] 3 ML PEN SC SCH ×4 (08:00→21:00)
[2019-05-11] MEDS: CEFEPIME 1GM/50 ML (PMX) 50 ML IVPB SCH (08:13)
[2019-05-11] MEDS: FENOFIBRATE 145 MG TAB PO SCH (08:14)
[2019-05-11] MEDS: FINASTERIDE 5 MG TAB PO SCH (08:14)
[2019-05-11] MEDS: ASPIRIN (EC) 81 MG TAB PO SCH (08:14)
[2019-05-11] MEDS: INSULIN GLARGINE [LANTus] (100 UNITS/ML) SYG SC SCH ×2 (08:44→21:31)
--- NOTE | 2019-05-11 13:30 | PN ---
Date/Time of Note Date/Time of Note DATE: 05/11/19 TIME: 13:28 Objective Vitals Vital Signs Date Temp Pulse Resp B/P (MAP) Pulse Ox O2 O2 Flow FiO2 Time Delivery Rate 05/11/19 67 12:08 05/11/19 98.2 20 133/77 96 Room Air 11:32 (95) Intake and Output 05/10/19 05/10/19 05/11/19 1414:59 22:59 06:59 IntakeIntake Total 50 ml 800 ml 240 ml OutputOutput Total 400 ml 1100 ml BalanceBalance 50 ml 400 ml -860 ml Results Result Diagram: 05/11/19 0535 05/11/19 0535 Medications Medications Current Medications IV Flush (NS 3 ml) 3 ml PER PROTOCOL IV ; Start 05/08/19 at 21:00 Acetaminophen (Tylenol Tab) 650 mg Q6H PRN PO .PAIN 1-3 OR TEMP; Start 05/08/19 at 21:00 Acetaminophen/ Hydrocodone Bitart ([place] (5/325)) 1 tab Q6H PRN PO .PAIN 4-6 Last administered on 05/09/19at 00:46; Admin Dose 1 TAB; Start 05/08/19 at 21:00 Morphine Sulfate (morphine) 2 mg Q4H PRN IV .PAIN 7-10 Last administered on 05/10/19at 21:11; Admin Dose 2 MG; Start 05/08/19 at 21:00 Docusate Sodium (Colace) 100 mg Q12H PRN PO .CONSTIPATION; Start 05/08/19 at 21:00 Bisacodyl (Dulcolax) 5 mg DAILY PRN PO .CONSTIPATION; Start 05/08/19 at 21:00 Diagnostic Test (Pha) (Accu-Chek) 1 ea 02 XX Last administered on 05/11/19at 01:41; Admin Dose 1 EA; Start 05/09/19 at 02:00 Insulin Aspart (Novolog Insulin Pen) NOVOLOG *MILD* ALGORITHM WITH MEALS BEDTIME SC Last administered on 05/11/19at 12:12; Admin Dose 1 UNIT; Start 05/08/19 at 21:00 Aspirin (Halfprin) 81 mg DAILY PO Last administered on 05/11/19at 08:14; Admin Dose 81 MG; Start 05/09/19 at 09:00 Atorvastatin Calcium (Lipitor) 80 mg QHS PO Last administered on 05/10/19at 21 :10; Admin Dose 80 MG; Start 05/08/19 at 21:00 Fenofibrate (Tricor) 145 mg DAILY PO Last administered on 05/11/19at 08:14; Admin Dose 145 MG; Start 05/09/19 at 09:00 Finasteride (Proscar) 5 mg DAILY PO Last administered on 05/11/19at 08:14; Admin Dose 5 MG; Start 05/09/19 at 09:00 Tamsulosin HCl (Flomax) 0.4 mg HS PO Last administered on 05/10/19at 21:10; Admin Dose 0.4 MG; Start 05/08/19 at 21:00 Miscellaneous Information 1 ea NOTE XX ; Start 05/08/19 at 23:30 Glucose (Glutose) 15 gm Q15M PRN PO DECREASED GLUCOSE; Start 05/08/19 at 23:30 Glucose (Glutose) 22.5 gm Q15M PRN PO DECREASED GLUCOSE; Start 05/08/19 at 23:30 Dextrose (D50w Syringe) 25 ml Q15M PRN IV DECREASED GLUCOSE; Start 05/08/19 at 23:30 Dextrose (D50w Syringe) 50 ml Q15M PRN IV DECREASED GLUCOSE; Start 05/08/19 at 23:30 Glucagon (Glucagen) 1 mg Q15M PRN IM DECREASED GLUCOSE; Start 05/08/19 at 23:30 Glucose (Glutose) 15 gm Q15M PRN BUCCAL DECREASED GLUCOSE; Start 05/08/19 at 23:30 Cefepime HCl 50 ml @ 100 mls/hr Q12 IVPB Last administered on 05/11/19at 08:13; Admin Dose 100 MLS/HR; Start 05/09/19 at 09:30 Hydralazine HCl (Apresoline) 10 mg Q4H PRN IV sbp >160; Start 05/09/19 at 09:30 Insulin Glargine (Lantus) 15 units BID SC ; Start 05/11/19 at 21:00 VTE Prophylaxis Risk score (from Nsg)>0 risk: 3 SCD applied (from Nsg): Yes Lines/Catheters IV Catheter Type: Shafer in Place: No Assessment/Plan Hospital Course Subjective -Patient feeling well, no acute complaints Objective Physical exam General: Patient is laying in bed and answers questions appropriately Mentation: Patient is alert and oriented 4, Head: Normocephalic atraumatic Eyes: EOMI, pupils reactive to light Neck: Supple, nontender, midline Respiratory: Clear to auscultation bilaterally Cardiovascular: regular rate, no obvious murmurs Gastrointestinal: non-tender to palpation, bowel sounds heard. Neurological: Moves all extremities spontaneously Skin: No new skin lesions Assessment and plan e coli bacteremia -Pending repeat cultures -Infectious disease consulted -Continue IV antibiotic UTI -Patient has a history of recurrent UTI -Continue IV antibiotic -Infectious disease consulted -psa noted Sepsis -Secondary to above UTI bacteremia -Continue IV antibiotic -Infectious disease consulted -Follow-up on cultures Normocytic anemia -No overt bleeding, monitor closely, follow-up outpatient Diabetes mellitus -Hemoglobin A1c is at optimal level -Continue current dose of Lantus, adjust as needed Dyslipidemia -Continue statin Hypertension -Holding blood pressure measurement medications right now due to sepsis, continue when able Coronary artery disease -Resume home meds when able BPH -Continue home meds -Bladder scans as needed, straight caths as needed. History of epididymitis -Ultrasound negative for acute issues Disposition -Patient will need to continue IV antibiotic for bacteremia and UTI. Awaiting negative blood cultures before sending patient home and infectious disease recommendations. RIP SANCHEZ May 11, 2019 13:30
--- NOTE | 2019-05-11 15:28 | CONS ---
Assessment/Plan Assessment/Plan Hospital Course (Demo Recall) Patient is alert feels good no fevers overnight no post void residuals. WBC today 10.4 no shift no bands BUN 11 creatinine 0.58 Microbiology: Blood culture grew E. coli, repeat blood cultures negative Antimicrobials: Patient is on cefepime Physical examination: Well-developed well-nourished elderly man who is alert in no distress head atraumatic normocephalic neck is supple chest rise symmetrical breath sounds diminished bases heart S1-S2 abdomen obese soft bowel sounds present patient has some tenderness over suprapubic area extremities without cyanosis Assessment: 1. Sepsis with fevers leukocytosis on admission, resolving 2. Urinary tract infection per urinalysis 3. E coli bacteremia likely secondary to #2 4. Possible urinary retention secondary to BPH 5. Diabetes 6. Hypertension Plan: Doing better, will change antibiotics to oral Cipro to continue for 2 week s Consultation Date/Type/Reason Admit Date/Time May 08, 2019 at 20:52 Initial Consult Date Type of Consult id Date/Time of Note DATE: 05/11/19 TIME: 15:27 Exam/Review of Systems Exam Vitals Vital Signs Date Temp Pulse Resp B/P (MAP) Pulse Ox O2 O2 Flow FiO2 Time Delivery Rate 05/11/19 98.3 72 16 116/56 97 14:11 (76) 05/11/19 Room Air 11:32 Intake and Output 05/10/19 05/10/19 05/11/19 1515:00 23:00 07:00 IntakeIntake Total 50 ml 800 ml 240 ml OutputOutput Total 400 ml 1100 ml BalanceBalance 50 ml 400 ml -860 ml Results Result Diagram: 05/11/19 0535 05/11/19 0535 Results 24hrs Laboratory Tests Test 05/10/19 17:14 05/10/19 21:02 05/11/19 01:30 05/11/19 05:34 Bedside Glucose 123 223 H 82 59 L Test 05/11/19 05:35 05/11/19 06:03 05/11/19 08:11 05/11/19 11:40 White Blood Count 10.4 # Red Blood Count 4.43 L Hemoglobin 13.0 L Hematocrit 38.8 L Mean Corpuscular 87.6 Volume Mean Corpuscular 29.3 Hemoglobin Mean Corpuscular 33.5 Hemoglobin Concent Red Cell 14.0 Distribution Width Platelet Count 168 # Mean Platelet Volume 12.5 H Immature 0.400 Granulocytes % Neutrophils % 69.4 Lymphocytes % 19.2 Monocytes % 7.7 Eosinophils % 2.6 Basophils % 0.7 Nucleated Red Blood 0.0 Cells % Immature 0.040 H Granulocytes # Neutrophils # 7.2 Lymphocytes # 2.0 Monocytes # 0.8 Eosinophils # 0.3 Basophils # 0.1 Nucleated Red Blood 0.0 Cells # Sodium Level 146 H Potassium Level 3.5 Chloride Level 104 Carbon Dioxide Level 29 Anion Gap 13 Blood Urea Nitrogen 11 Creatinine 0.58 L Est Glomerular > 60 Filtrat Rate mL/min Glucose Level 58 #L Calcium Level 9.0 Magnesium Level 2.1 Total Bilirubin 0.8 Direct Bilirubin 0.00 Indirect Bilirubin 0.8 Aspartate Amino 23 Transf (AST/SGOT) Alanine 27 Aminotransferase (AL T/SGPT) Alkaline Phosphatase 92 Total Protein 7.3 Albumin 3.7 Globulin 3.60 H Albumin/Globulin 1.02 Ratio Bedside Glucose 94 84 173 Medications Medication Current Medications IV Flush (NS 3 ml) 3 ml PER PROTOCOL IV ; Start 05/08/19 at 21:00 Acetaminophen (Tylenol Tab) 650 mg Q6H PRN PO .PAIN 1-3 OR TEMP; Start 05/08/19 at 21:00 Acetaminophen/ Hydrocodone Bitart ([place] (5/325)) 1 tab Q6H PRN PO .PAIN 4-6 Last administered on 05/09/19at 00:46; Admin Dose 1 TAB; Start 05/08/19 at 21:00 Morphine Sulfate (morphine) 2 mg Q4H PRN IV .PAIN 7-10 Last administered on 05/10/19at 21:11; Admin Dose 2 MG; Start 05/08/19 at 21:00 Docusate Sodium (Colace) 100 mg Q12H PRN PO .CONSTIPATION; Start 05/08/19 at 21:00 Bisacodyl (Dulcolax) 5 mg DAILY PRN PO .CONSTIPATION; Start 05/08/19 at 21:00 Diagnostic Test (Pha) (Accu-Chek) 1 ea 02 XX Last administered on 05/11/19at 01:41; Admin Dose 1 EA; Start 05/09/19 at 02:00 Insulin Aspart (Novolog Insulin Pen) NOVOLOG *MILD* ALGORITHM WITH MEALS BEDTIME SC Last administered on 05/11/19at 12:12; Admin Dose 1 UNIT; Start 05/08/19 at 21:00 Aspirin (Halfprin) 81 mg DAILY PO Last administered on 05/11/19at 08:14; Admin Dose 81 MG; Start 05/09/19 at 09:00 Atorvastatin Calcium (Lipitor) 80 mg QHS PO Last administered on 05/10/19at 21:10; Admin Dose 80 MG; Start 05/08/19 at 21:00 Fenofibrate (Tricor) 145 mg DAILY PO Last administered on 05/11/19at 08:14; Admin Dose 145 MG; Start 05/09/19 at 09:00 Finasteride (Proscar) 5 mg DAILY PO Last administered on 05/11/19 08:14; Admin Dose 5 MG; Start 05/09/19 at 09:00 Tamsulosin HCl (Flomax) 0.4 mg HS PO Last administered on 05/10/19at 21:10; Admin Dose 0.4 MG; Start 05/08/19 at 21:00 Miscellaneous Information 1 ea NOTE XX ; Start 05/08/19 at 23:30 Glucose (Glutose) 15 gm Q15M PRN PO DECREASED GLUCOSE; Start 05/08/19 at 23:30 Glucose (Glutose) 22.5 gm Q15M PRN PO DECREASED GLUCOSE; Start 05/08/19 at 23:30 Dextrose (D50w Syringe) 25 ml Q15M PRN IV DECREASED GLUCOSE; Start 05/08/19 at 23:30 Dextrose (D50w Syringe) 50 ml Q15M PRN IV DECREASED GLUCOSE; Start 05/08/19 at 23:30 Glucagon (Glucagen) 1 mg Q15M PRN IM DECREASED GLUCOSE; Start 05/08/19 at 23:30 Glucose (Glutose) 15 gm Q15M PRN BUCCAL DECREASED GLUCOSE; Start 05/08/19 at 23:30 Hydralazine HCl (Apresoline) 10 mg Q4H PRN IV sbp >160; Start 05/09/19 at 09:30 Insulin Glargine (Lantus) 15 units BID SC ; Start 05/11/19 at 21:00 Ciprofloxacin/ Dextrose 200 ml @ 200 mls/hr Q12 IVPB ; Start 05/11/19 at 21:00 MADELYN LOYA NP May 11, 2019 15:28
[2019-05-11] MEDS: CIPROFLOXACIN 500 MG TAB PO SCH (17:57)
[2019-05-11] MEDS ORDERED: CIPROFLOXACIN 400MG/D5W 200 ML IVPB SCH (21:00)
[2019-05-11] MEDS: TAMSULOSIN (SR) 0.4 MG CAP PO SCH (21:26)
[2019-05-11] MEDS: ATORVASTATIN 80 MG TAB PO SCH (21:27)
[2019-05-12 02:00] VITALS: BP 121/60; PULSE 62; RESP 18
[2019-05-12] MEDS: ACCU-CHEK XX SCH (02:00)
[2019-05-12] MEDS: CIPROFLOXACIN 500 MG TAB PO SCH (05:35)
[2019-05-12 07:43] VITALS: BP 111/61; PULSE 67; RESP 18
[2019-05-12] MEDS: INSULIN ASPART [NOVOLOG] 3 ML PEN SC SCH ×2 (08:00→12:57)
[2019-05-12] MEDS: ASPIRIN (EC) 81 MG TAB PO SCH (08:56)
[2019-05-12] MEDS: FENOFIBRATE 145 MG TAB PO SCH (08:56)
[2019-05-12] MEDS: FINASTERIDE 5 MG TAB PO SCH (08:57)
[2019-05-12] MEDS: INSULIN GLARGINE [LANTus] (100 UNITS/ML) SYG SC SCH (09:06)
[2019-05-12] MEDS ORDERED: CIPR500T4 PO (13:03)
--- NOTE | 2019-05-12 13:06 | PDOCDIS ---
Discharge Instructions CONDITION [id number] Patient Condition: [id number] Stable FOLLOW UP/APPOINTMENTS Follow-up Plan 1. Please continue all medications as directed, you must complete all your oral antibiotic. 2. Please follow-up with your urologist, Dr. Griffin, as soon as possible as your PSA ratio is slightly abnormal, you may be at risk for developing prostate cancer in the future, please make an appointment as soon as possible. 3. Please follow-up with your primary care provider as soon as possible RIP SANCHEZ May 12, 2019 13:06
--- NOTE | 2019-05-12 13:09 | DS ---
Date/Time of Note Date/Time of Note DATE: 05/12/19 TIME: 13:08 Discharge Summary Admission/Discharge Info Admit Date/Time May 08, 2019 at 20:52 Discharge Date/Time Patient Condition: Stable Hospital Course Patient is a male with a past medical history significant for hypertension, diabetes mellitus, dyslipidemia, BPH and recurrent UTI. Patient was admitted for symptoms of UTI and was seen by infectious disease. Patient also was found to have E. coli bacteremia was appropriately treated. Patient was eventually switched over to oral antibiotic per infectious disease recommendations and patient will be discharged to finish out a 2-week course of ciprofloxacin. Patient will follow-up with his urologist as soon as possible as his PSA ratio was abnormal he may be at risk for developing prostate cancer in the future, patient will continue other medications otherwise however patient will hold off on his blood pressure medication for now due to sepsis but will continue once it is safe and his primary care doctor states that he is able to take it. Discharge diagnosis E. coli bacteremia, resolving UTI, resolving Sepsis, resolved Anemia Diabetes mellitus Dyslipidemia Hypertension Coronary artery disease BPH History of epididymitis Home Meds Active Scripts Ciprofloxacin Hcl* (Ciprofloxacin Hcl*) 500 Mg Tablet, 500 MG PO BID, #26 TAB Prov:RIP SANCHEZ 05/12/19 Tamsulosin Hcl* (Flomax*) 0.4 Mg Cap.er.24h, 0.4 MG PO HS for 30 Days, CAP Prov:BUCK LE 07/03/17 Reported Medications Insulin Human Regular (Novolin-R U-100) 100 Unit/Ml Soln, 12 UNIT SC SLIDING SCALE AC, EA 12/03/17 Insulin Isophan/Regular (Humulin 70/30) 100 Units/Ml Susp, 40 UNIT SC AC ELIZABETH KFAST DINNER, EA 12/03/17 Aspirin* (Aspirin* EC) 81 Mg Tablet.dr, 81 MG PO DAILY, TAB 12/03/17 Metformin* (Glucophage*) 1,000 Mg Tablet, 1000 MG PO WITH BREAKFAST DINNE, #30 TAB 12/03/17 Atorvastatin* (Atorvastatin*) 80 Mg Tablet, 80 MG PO QHS, #30 TAB 06/28/17 Fenofibrate Nanocrystallized* (Fenofibrate*) 145 Mg Tablet, 145 MG PO DAILY, TAB 06/28/17 Finasteride* (Finasteride*) 5 Mg Tablet, 5 MG PO DAILY, TAB 06/28/17 Discontinued Reported Medications Tramadol Hcl* (Ultram*) 50 Mg Tablet, 50 MG PO QHS PRN for PAIN, TAB 12/03/17 Benazepril Hcl* (Benazepril Hcl*) 10 Mg Tablet, 10 MG PO DAILY, #30 TAB 12/03/17 Hydrocodone/Acetaminophen ([place] 5-325 Tablet) 1 Each Tablet, 1 EACH PO, TAB 12/03/17 Discontinued Scripts Ibuprofen* (Motrin*) 600 Mg Tab, 600 MG PO Q6, #20 TAB Prov:BRANDEE TORRES MD 12/03/17 Ciprofloxacin Hcl* (Ciprofloxacin Hcl*) 500 Mg Tablet, 500 MG PO BID for 10 Days, TAB Prov:BRANDEE TORRES MD 12/03/17 Hydrocodone/Acetaminophen ([place] 5-325 Tablet) 1 Each Tablet, 1 EACH PO Q4 for PAIN, #30 TAB Prov:BUCK LE 07/03/17 Follow-up Plan 1. Please continue all medications as directed, you must complete all your oral antibiotic. 2. Please follow-up with your urologist, Dr. Griffin, as soon as possible as your PSA ratio is slightly abnormal, you may be at risk for developing prostate cancer in the future, please make an appointment as soon as possible. 3. Please follow-up with your primary care provider as soon as possible Primary Care Provider Kinsey Jackson Time spent on discharge: > 30 minutes Pending Labs Laboratory Tests Test 05/11/19 17:53 05/11/19 21:25 05/12/19 05:27 05/12/19 08:54 Bedside 138 155 114 Glucose mg/dL (70-220) mg/dL (70-220) mg/dL (70-220) White Blood 8.3 Count 10^3/ul (4.8-1 0.8) Red Blood 4.75 Count 10^6/ul (4.70- 6.10) Hemoglobin 13.9 g/dl (14.0-18. 0) Hematocrit 41.6 % (42.0-52.0) Mean 87.6 Corpuscular fl (82.0-101.0 Volume ) Mean 29.3 Corpuscular pg (29.0-33.0) Hemoglobin Mean 33.4 Corpuscular g/dl (32.0-37. Hemoglobin Conc 0) ent Red Cell 13.5 Distribution % (11.5-14.5) Width Platelet Count 202 10^3/UL (140-4 15) Mean Platelet 11.3 Volume fl (7.4-10.4) Immature 0.600 Granulocytes % % (0.001-0.429 ) Neutrophils % 58.5 % (39.0-77.0) Lymphocytes % 24.3 % (15.0-51.0) Monocytes % 10.6 % (0.0-11.0) Eosinophils % 4.8 % (0.0-7.0) Basophils % 1.2 % (0.0-2.0) Nucleated Red 0.0 Blood Cells % /100WBC (0.0-0 .0) Immature 0.050 Granulocytes # 10^3/ul (0.0-0 .031) Neutrophils # 4.9 10^3/ul (1.6-7 .5) Lymphocytes # 2.0 10^3/ul (0.8-2 .9) Monocytes # 0.9 10^3/ul (0.3-0 .9) Eosinophils # 0.4 10^3/ul (0.0-0 .5) Basophils # 0.1 10^3/ul (0.0-0 .1) Nucleated Red 0.0 Blood Cells # 10^3/ul (0.0-0 .0) Sodium Level 142 mmol/L (135-14 4) Potassium 4.0 Level mmol/L (3.5-5. 1) Chloride Level 102 mmol/L (97-110 ) Carbon Dioxide 30 Level mmol/L (21-31) Anion Gap 10 (5-13) Blood Urea 14 Nitrogen mg/dl (7-20) Creatinine 0.74 mg/dl (0.61-1. 24) Est Glomerular > 60 Filtrat mL/min (>60) Rate mL/min Glucose Level 127 mg/dl (70-220) Calcium Level 9.3 mg/dl (8.4-10. 2) Magnesium 2.1 Level mg/dl (1.7-2.5 ) Total 0.7 Bilirubin mg/dl (0.2-1.3 ) Direct 0.00 Bilirubin mg/dl (0.00-0. 20) Indirect 0.7 Bilirubin mg/dl (0-1.1) Aspartate Amino 19 Transf (AST/SGO IU/L (15-46) T) Alanine 21 Aminotransferas IU/L (13-69) e (ALT/SGPT) Alkaline 87 Phosphatase IU/L (42-121) Total Protein 7.6 g/dl (6.1-8.1) Albumin 3.8 g/dl (3.3-4.9) Globulin 3.80 g/dl (1.3-3.2) Albumin/Globuli 1.00 n Ratio Test 05/12/19 12:44 Bedside 232 Glucose mg/dL (70-220) RIP SANCHEZ May 12, 2019 13:08
--- NOTE | 2019-05-12 13:19 | CONS ---
Assessment/Plan Assessment/Plan Hospital Course (Demo Recall) No events overnight patient is alert feels good denies pain WBC 8.3 no shift no bands BUN 14 creatinine 0.74 Microbiology: Blood culture grew E. coli, repeat blood cultures negative Antimicrobials: Cipro Physical examination: Well-developed well-nourished elderly man who is alert in no distress head atraumatic normocephalic neck is supple chest rise symmetrical breath sounds diminished bases heart S1-S2 abdomen obese soft bowel sounds present patient has some tenderness over suprapubic area extremities without cyanosis Assessment: 1. Sepsis with fevers leukocytosis on admission, resolving 2. Urinary tract infection per urinalysis 3. E coli bacteremia likely secondary to #2 4. Possible urinary retention secondary to BPH 5. Diabetes 6. Hypertension Plan: Stable, ok dc on PO Cipro to complete 2 weeks Consultation Date/Type/Reason Admit Date/Time May 08, 2019 at 20:52 Initial Consult Date Type of Consult id Date/Time of Note DATE: 05/12/19 TIME: 13:18 Exam/Review of Systems Exam Vitals Vital Signs Date Temp Pulse Resp B/P (MAP) Pulse Ox O2 O2 Flow FiO2 Time Delivery Rate 05/12/19 98.4 67 18 111/61 98 Room Air 07:43 (78) Intake and Output 05/11/19 05/11/19 05/12/19 1515:00 23:00 07:00 IntakeIntake Total 50 ml 1440 ml OutputOutput Total 1150 ml 1128 ml BalanceBalance 50 ml 290 ml -1128 ml Results Result Diagram: 05/12/19 0527 05/12/19 0527 Results 24hrs Laboratory Tests Test 05/11/19 17:53 05/11/19 21:25 05/12/19 05:27 05/12/19 08:54 Bedside Glucose 138 155 114 White Blood Count 8.3 # Red Blood Count 4.75 Hemoglobin 13.9 L Hematocrit 41.6 L Mean Corpuscular 87.6 Volume Mean Corpuscular 29.3 Hemoglobin Mean Corpuscular 33.4 Hemoglobin Concent Red Cell 13.5 Distribution Width Platelet Count 202 # Mean Platelet Volume 11.3 H Immature 0.600 H Granulocytes % Neutrophils % 58.5 Lymphocytes % 24.3 Monocytes % 10.6 Eosinophils % 4.8 Basophils % 1.2 Nucleated Red Blood 0.0 Cells % Immature 0.050 H Granulocytes # Neutrophils # 4.9 Lymphocytes # 2.0 Monocytes # 0.9 Eosinophils # 0.4 Basophils # 0.1 Nucleated Red Blood 0.0 Cells # Sodium Level 142 Potassium Level 4.0 Chloride Level 102 Carbon Dioxide Level 30 Anion Gap 10 Blood Urea Nitrogen 14 Creatinine 0.74 Est Glomerular > 60 Filtrat Rate mL/min Glucose Level 127 # Calcium Level 9.3 Magnesium Level 2.1 Total Bilirubin 0.7 Direct Bilirubin 0.00 Indirect Bilirubin 0.7 Aspartate Amino 19 Transf (AST/SGOT) Alanine 21 Aminotransferase (AL T/SGPT) Alkaline Phosphatase 87 Total Protein 7.6 Albumin 3.8 Globulin 3.80 H Albumin/Globulin 1.00 Ratio Test 05/12/19 12:44 Bedside Glucose 232 H Medications Medication Current Medications IV Flush (NS 3 ml) 3 ml PER PROTOCOL IV ; Start 05/08/19 at 21:00 Acetaminophen (Tylenol Tab) 650 mg Q6H PRN PO .PAIN 1-3 OR TEMP; Start 05/08/19 at 21:00 Acetaminophen/ Hydrocodone Bitart ([place] (5/325)) 1 tab Q6H PRN PO .PAIN 4-6 Last administered on 05/09/19at 00:46; Admin Dose 1 TAB; Start 05/08/19 at 21:00 Morphine Sulfate (morphine) 2 mg Q4H PRN IV .PAIN 7-10 Last administered on 05/10/19at 21:11; Admin Dose 2 MG; Start 05/08/19 at 21:00 Docusate Sodium (Colace) 100 mg Q12H PRN PO .CONSTIPATION; Start 05/08/19 at 21:00 Bisacodyl (Dulcolax) 5 mg DAILY PRN PO .CONSTIPATION; Start 05/08/19 at 21:00 Diagnostic Test (Pha) (Accu-Chek) 1 ea 02 XX Last administered on 05/11/19at 01:41; Admin Dose 1 EA; Start 05/09/19 at 02:00 Insulin Aspart (Novolog Insulin Pen) NOVOLOG *MILD* ALGORITHM WITH MEALS BE DTIME SC Last administered on 05/12/19at 12:57; Admin Dose 3 UNIT; Start 05/08/19 at 21:00 Aspirin (Halfprin) 81 mg DAILY PO Last administered on 05/12/19at 08:56; Admin Dose 81 MG; Start 05/09/19 at 09:00 Atorvastatin Calcium (Lipitor) 80 mg QHS PO Last administered on 05/11/19at 21:27; Admin Dose 80 MG; Start 05/08/19 at 21:00 Fenofibrate (Tricor) 145 mg DAILY PO Last administered on 05/12/19 08:56; Admin Dose 145 MG; Start 05/09/19 at 09:00 Finasteride (Proscar) 5 mg DAILY PO Last administered on 05/12/19at 08:57; Admin Dose 5 MG; Start 05/09/19 at 09:00 Tamsulosin HCl (Flomax) 0.4 mg HS PO Last administered on 05/11/19 21:26; Admin Dose 0.4 MG; Start 05/08/19 at 21:00 Miscellaneous Information 1 ea NOTE XX ; Start 05/08/19 at 23:30 Glucose (Glutose) 15 gm Q15M PRN PO DECREASED GLUCOSE; Start 05/08/19 at 23:30 Glucose (Glutose) 22.5 gm Q15M PRN PO DECREASED GLUCOSE; Start 05/08/19 at 23:30 Dextrose (D50w Syringe) 25 ml Q15M PRN IV DECREASED GLUCOSE; Start 05/08/19 at 23:30 Dextrose (D50w Syringe) 50 ml Q15M PRN IV DECREASED GLUCOSE; Start 05/08/19 at 23:30 Glucagon (Glucagen) 1 mg Q15M PRN IM DECREASED GLUCOSE; Start 05/08/19 at 23:30 Glucose (Glutose) 15 gm Q15M PRN BUCCAL DECREASED GLUCOSE; Start 05/08/19 at 23:30 Hydralazine HCl (Apresoline) 10 mg Q4H PRN IV sbp >160; Start 05/09/19 at 09:30 Insulin Glargine (Lantus) 15 units BID SC Last administered on 05/12/19at 09:06; Admin Dose 15 UNITS; Start 05/11/19 at 21:00 Ciprofloxacin (Cipro) 500 mg BID@,18 PO Last administered on 05/12/19at 05:35; Admin Dose 500 MG; Start 05/11/19 at 18:00 MADELYN LOYA NP May 12, 2019 13:19
[2019-05-12 14:03] VITALS: BP 121/64; PULSE 84; RESP 18
== END 2019-05-12 14:35 | disposition home or self-care (01) | DRG 872 ==
LOC: E/R 17:59 → 6WM 20:52 → 2NE 05-11 13:52
PROVIDERS: ADMIT Family Medicine; ATTEND Internal Medicine
DX: A41.51 Sepsis due to Escherichia coli [E. coli] (principal); N39.0 Urinary tract infection, site not specified; I10 Essential (primary) hypertension; R65.20 Severe sepsis without septic shock; N40.0 Benign prostatic hyperplasia without lower urinary tract symptoms; E78.5 Hyperlipidemia, unspecified; I25.10 Atherosclerotic heart disease of native coronary artery without angina pectoris; I11.0 Hypertensive heart disease with heart failure; I50.9 Heart failure, unspecified; F17.210 Nicotine dependence, cigarettes, uncomplicated; D64.9 Anemia, unspecified; E11.9 Type 2 diabetes mellitus without complications; Z79.82 Long term (current) use of aspirin; Z79.4 Long term (current) use of insulin
CPT/HCPCS: 36415; 71045; 76870; 80053; 80061; 81001; 82962; 83036; 83605; 83690; 83735; 84153; 84154; 84443; 84484; 85025; 85610; 85730; 87086; 93005; 96365; J0692; J0696; J0744; J1815; J2270; J7030; J7040